=== PATIENT | female | born 1955 | race Hispanic/Latino ===

== ENCOUNTER → 2023-12-17 | Outpatient (CLI) | payer MEDICARE ==
[~2023-12-17] VITALS: Ht 165.1 cm; Wt 68.2 kg
[~2023-12-17] MED LIST: ATOR10 PO; CALCIUM/MG/ZINC PO; CHOL200052 PO; RIVA20TA PO; TELM1TAB42 PO; VERA180T60 PO; VITA1CAP PO
[2023-12-17 14:47] LABS: BASOPHILS # (AUTO) 0.04 K/uL (0.00-0.20); BASOPHILS % (AUTO) 0.6 % (0.0-5.0); EOSINOPHILS # (AUTO) 0.19 K/uL (0.00-0.70); EOSINOPHILS % (AUTO) 2.8 % (0.0-8.0); HEMATOCRIT 39.5 % (36-48); IMMATURE GRANULOCYTE ABSOLUTE 0.01 K/uL (0-1); LYMPHOCYTES % (AUTO) 29.9 % (21.0-51.0); MEAN CORPUSCULAR HEMOGLOBIN 31.7 pg (27.0-33.0); MEAN CORPUSCULAR HGB CONC 33.7 g/dL (32.0-36.0); MONOCYTES # (AUTO) 0.5 K/uL (0.1-1.0); MONOCYTES % (AUTO) 7.9 % (3.0-13.0); NEUTROPHILS # (AUTO) 3.9 K/uL (1.8-7.7); NEUTROPHILS % (AUTO) 58.7 % (40.0-77.0); PLATELET COUNT (AUTO) 185 K/uL (130-400); RED CELL DISTRIBUTION WIDTH 13.2 % (11.0-15.5); WHITE BLOOD COUNT (AUTO) 6.7 K/uL (4.8-10.8)
[2023-12-17 14:51] VITALS: BP 156/70; PULSE 76; RESP 17
[2023-12-17 15:03] LABS: CREATININE 0.6 mg/dL (0.5-1.5); POTASSIUM 3.6 mmol/L (3.5-5.1)
[2023-12-17 15:05] LABS: INR 1.02 (0.85-1.15); PROTHROMBIN TIME 11.8 SEC (9.6-11.6)
[2023-12-17 15:06] LABS: PARTIAL THROMBOPLASTIN TIME 33.7 SEC (26.3-35.5)
== END | disposition home or self-care (01) ==
LOC: DAH 10:00 → EDSTATUS 13:00
PROVIDERS: ATTEND Internal Medicine Cardiovascular Disease
DX: I49.3 Ventricular premature depolarization (principal); I48.0 Paroxysmal atrial fibrillation
CPT/HCPCS: 36415; 80048; 85025; 85610; 85730; 93005

== ENCOUNTER 2024-01-12 06:10 | Day surgery (SDC) | payer MEDICARE ==
[2024-01-10 09:58] VITALS: BP 147/63; PULSE 65; RESP 17
[2024-01-10 10:04] LABS: BASOPHILS # (AUTO) 0.04 K/uL (0.00-0.20); BASOPHILS % (AUTO) 0.6 % (0.0-5.0); EOSINOPHILS # (AUTO) 0.19 K/uL (0.00-0.70); EOSINOPHILS % (AUTO) 2.9 % (0.0-8.0); IMMATURE GRANULOCYTE ABSOLUTE 0.02 K/uL (0-1); LYMPHOCYTES # (AUTO) 1.4 K/uL (1.0-4.8); MEAN CORPUSCULAR HEMOGLOBIN 31.6 pg (27.0-33.0); MEAN CORPUSCULAR HGB CONC 33.3 g/dL (32.0-36.0); MEAN CORPUSCULAR VOLUME 94.7 fL (79-99); MONOCYTES # (AUTO) 0.5 K/uL (0.1-1.0); MONOCYTES % (AUTO) 7.1 % (3.0-13.0); NEUTROPHILS # (AUTO) 4.4 K/uL (1.8-7.7); NEUTROPHILS % (AUTO) 67.1 % (40.0-77.0); PLATELET COUNT (AUTO) 166 K/uL (130-400); RED CELL DISTRIBUTION WIDTH 13.5 % (11.0-15.5); WHITE BLOOD COUNT (AUTO) 6.5 K/uL (4.8-10.8)
[2024-01-10 10:12] LABS: CREATININE 0.7 mg/dL (0.5-1.5); POTASSIUM 3.9 mmol/L (3.5-5.1)
[2024-01-10 10:13] LABS: INR 0.94 (0.85-1.15)
[2024-01-10 10:15] LABS: PARTIAL THROMBOPLASTIN TIME 30.5 SEC (26.3-35.5)
[~2024-01-12] VITALS: Ht 162.6 cm; Wt 68.3 kg
[2024-01-12] VITALS (10 sets, daily range): BP systolic 103–146; BP diastolic 44–63; PULSE 65–70; RESP 1–18
[2024-01-12] MEDS: 0.9%NACL 1000ML 1,000 ML IV ONE (06:50)
[2024-01-12] MEDS ORDERED: LIDOCAINE HCL 1% MDV 50ML VIAL ONE (07:13)
[2024-01-12] MEDS ORDERED: BUPIVACAINE/PF 0.25% 30ML VIAL IJ ONE (07:14)
[2024-01-12] MEDS ORDERED: CEFAZOLIN SODIUM 1 GM VIAL ONE (07:14)
[2024-01-12] MEDS ORDERED: IOHEXOL-350 50ML VIAL IV ONE (07:24)
[2024-01-12] MEDS ORDERED: MIDAZOLAM HCL 1 MG/ML 2ML VIAL ONE ×3 (07:43→08:50)
[2024-01-12] MEDS ORDERED: FENTANYL CITRATE PF 50 MCG/1 ML 2ML VIAL ONE ×2 (07:43→08:59)
[2024-01-12] MEDS ORDERED: ACETAMINOPHEN WITH CODEINE 1 TAB TAB PO PRN (10:00)
[2024-01-12] MEDS: ACETAMINOPHEN 500 MG TABLET PO PRN (10:43)
[2024-01-12] MEDS ORDERED: ADENOSINE 6MG VIAL IV ONE (12:30)
[2024-01-12] MEDS ORDERED: PROP225C8 PO (13:29)
[2024-01-12] MEDS ORDERED: TRAM50TA4 PO (13:29)
== END 2024-01-12 14:00 | disposition home or self-care (01) ==
LOC: DAH 06:10
PROVIDERS: ATTEND Internal Medicine Cardiovascular Disease
DX: Z45.09 Encounter for adjustment and management of other cardiac device (principal); I49.5 Sick sinus syndrome; I48.0 Paroxysmal atrial fibrillation; I47.19 Other supraventricular tachycardia; Z79.899 Other long term (current) drug therapy; Z79.01 Long term (current) use of anticoagulants; Z90.710 Acquired absence of both cervix and uterus; Z98.890 Other specified postprocedural states; Z82.49 Family history of ischemic heart disease and other diseases of the circulatory system; Z80.0 Family history of malignant neoplasm of digestive organs; Z80.1 Family history of malignant neoplasm of trachea, bronchus and lung
CPT/HCPCS: 80048; 85025; 85610; 85730; 36415; 93005; 33208; 33286; 82948 ×2; 71045; A4649; C1785; C1898 ×2; J0153; J3010 ×2; J0690; J7030; J0665; J2250 ×3; J3490; A4215; A4222; A4221; A4663; A4216; A4606; A4223 ×3; 99156; 99157; Q9967

== ENCOUNTER → 2025-06-14 | Outpatient (CLI) | payer MEDICARE ==
--- NOTE | 2025-06-01 10:20 | NUR ---
SPOKE WITH ANDREW maki, will notify dr. sofia for next stop possible pre med instructions
[~2025-06-14] MED LIST changes: +IOHEXOL 350 MG/ML 100ML INFUS..BTL IV ONE; +PROP225C24 PO; -TELM1TAB42 PO; +TELM1TAB84 PO; +TRAM50TA4 PO; -VERA180T60 PO
== END | disposition home or self-care (01) ==
LOC: RAH 06-01 08:33
PROVIDERS: ATTEND Internal Medicine Cardiovascular Disease
DX: Z53.9 Procedure and treatment not carried out, unspecified reason (principal)
CPT/HCPCS: J1200; J2919; Q9967; 75574

== ENCOUNTER 2025-07-30 06:07 | Day surgery (SDC) | payer MEDICARE ==
[2025-07-26 11:41] LABS: IMMATURE GRANULOCYTE ABSOLUTE 0.01 K/uL (0-1); NUCLEATED RED BLOOD CELLS 0.0 % (0.0-0.19); PLATELET COUNT (AUTO) 162 K/uL (130-400); RED BLOOD CELL COUNT(AUTO) 3.67 MIL/uL (4.00-5.50); RED CELL DISTRIBUTION WIDTH 13.9 % (11.0-15.5); WHITE BLOOD COUNT (AUTO) 5.7 K/uL (4.8-10.8)
[2025-07-26 11:42] VITALS: BP 149/58; PULSE 70; RESP 18; TEMP 97.7
[2025-07-26 11:44] LABS: APPEARANCE,URINE CLEAR (CLEAR); GLUCOSE, URINE (UA) NEGATIVE (NEGATIVE); LEUKOCYTE ESTERASE ,URINE NEGATIVE Leu/uL (NEGATIVE); NITRATE,URINE NEGATIVE (NEGATIVE); OCCULT BLOOD,URINE NEGATIVE (NEGATIVE)
[2025-07-26 11:48] LABS: CREATININE 0.9 mg/dL (0.5-1.0); GLOMERULAR FILTR. RATE CALC 68.0 mL/min (>90); GLUCOSE,RANDOM 103.0 mg/dL (70-105); SODIUM SERUM 142.0 mmol/L (136-145); UREA NITROGEN, BLOOD 24.0 mg/dL (7-18)
[2025-07-26 11:51] LABS: INR 1.16 (0.85-1.15)
[2025-07-26 12:04] LABS: ADD UA MICROSCOPIC NO
--- NOTE | 2025-07-26 12:06 | EKG ---
[facility] Test Date: 2025-07-26 Test Time: 11:26:44 Pat Name: STIVEN VALENCIA Department: [facility] Room: Gender: F [employer]: [id number] : 1955 Requested By: JEFFREY LOPEZ Order Number: [id number] Reading MD: Maroc Carter Measurements Intervals [place] Rate: 70 P: 72 NE: 269 QRS: 151 QRSD: 145 T: -40 QT: 411 QTc: 443 Interpretive Statements Sinus rhythm Prolonged NE interval Probable left atrial enlargement Nonspecific intraventricular conduction delay Compared to ECG 01/10/2024 09:46:52 Intraventricular conduction delay now present Electronically Signed On 07-26-2025 15:35:44 CDT by Marco Carter Please click the below link to view image of tracing.
--- NOTE | 2025-07-26 13:52 | HMCIMG ---
CHEST 1VW REASON: PRE OP COMPARISON: Prior chest radiograph from 01/12/2024 is available. FINDINGS: Single view of the chest was obtained. Lungs are clear. There is hyperaeration of lungs with flattening of both hemidiaphragms suggesting of chronic obstructive pulmonary disease.. Heart size is normal. There is a left-sided pacemaker with lead in right atrium and right ventricle. There is no pulmonary vascular congestion. Mediastinum and bony thorax appear unremarkable. IMPRESSION: 1. Chronic obstructive pulmonary disease 2. No evidence of airspace consolidation or pulmonary venous congestion.
--- NOTE | 2025-07-27 09:47 | NUR ---
RE: IODINE ALLERGY INFORMED LANI MCDONALD NP THAT PATIENT STATES SHE IS ALLERGIC TO IODINE. RECEIVED ORDERS FOR PRE MEDS TO BE GIVEN (BENADRYL/SOLUMEDROL)
[2025-07-30] VITALS (9 sets, daily range): BP systolic 122–142; BP diastolic 58–65; PULSE 70; RESP 10–17; TEMP 96.9–97.8
[~2025-07-30] VITALS: Ht 162.6 cm; Wt 67.9 kg
[~2025-07-30 06:07] MED LIST changes: -CALCIUM/MG/ZINC PO; -CHOL200052 PO; -IOHEXOL 350 MG/ML 100ML INFUS..BTL IV ONE; +METO-391 PO; -PROP225C24 PO; +PROP325C17 PO; -TRAM50TA4 PO; -VITA1CAP PO
[2025-07-30] MEDS: 0.9%NACL 1000ML 1,000 ML IV SCH (06:15)
[2025-07-30] MEDS ORDERED: LIDOCAINE HCL 400MG/20ML VIAL ONE (07:13)
[2025-07-30] MEDS ORDERED: IOHEXOL 350 MG/ML 100ML INFUS..BTL IV ONE (07:13)
[2025-07-30] MEDS ORDERED: HEParin-NS 1,000 UNIT/500 ML 1,000 ML IV ONE (07:14)
[2025-07-30] MEDS ORDERED: NITROGLYCERIN 50MG VIAL ONE (07:14)
[2025-07-30] MEDS ORDERED: FAMOTIDINE 20MG VIAL IV ONE (08:02)
[2025-07-30] MEDS ORDERED: MIDAZOLAM HCL 1 MG/ML 2ML VIAL ONE (08:05)
[2025-07-30] MEDS ORDERED: DEXTROSE 50%-WATER 50 ML DISP.SYRIN IV PRN (09:30)
[2025-07-30] MEDS ORDERED: GLUCAGON 1MG KIT 1 MG ML IM PRN (09:30)
[2025-07-30] MEDS ORDERED: 0.9%NACL 1000ML 1,000 ML IV SCH (09:30)
--- NOTE | 2025-07-30 09:48 | PRN ---
PROCEDURE NOTE Indications: Abnormal Lexiscan stress test done on 06/29/2025 (small size, mild intensity, fully reversible perfusion defect seen in the mid anterior septal wall) Nonobstructive CAD ([facility]/coronary angiogram done on 07/22/2023) Paroxysmal SVT Paroxysmal atrial fibrillation, on anticoagulation Frequent PVCs Sinus pauses status post DC ppm placement done on 01/12/2024 Wide complex tachycardia HTN HLP Renal artery stenosis Procedures: Coronary angiogram, femoral angiogram, renal artery angiogram, IFR of the LAD Introduction: After informed written consent was obtained, the patient was brought to the Catheterization Lab in the usual fasting state. Following sterile prep and drape, a time out was performed, then moderate sedation was administered, 1mg of Versed and 50mcg of Fentanyl, then 1% Lidocaine was infiltrated into the right femoral groin. Using a Modified Seldinger technique, a 6Fr Sheath was inserted into the right common femoral artery. While under fluoroscopic guidance, diagnostic coronary catheters were advanced over a wire into the central circulation where they were aspirated, flushed and placed to pressure monitoring, once the wire was removed. Coronary Angio: The left and right coronary arteries were engaged with appropriate catheters and angiography was performed under continuous pressure monitoring. Cardiac Findings: Co-dominant system LM: Large caliber vessel with mild luminal irregularities. The vessel bifurcates into the LAD and LCX. LAD: Large caliber vessel with 40% stenosis in the mid LAD. 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 CEDRIC three blood flow distally Diagonal 1: Small caliber vessel with mild luminal irregularities. Diagonal 2: Small caliber vessel with mild luminal irregularities. LCx: Large caliber vessel with 20% stenosis in the ostial LCX. High OM1: Small caliber vessel (1.0mm) with mild luminal irregularities. High OM2: Small caliber vessel (1.0mm) with mild luminal irregularities. OM3: Medium caliber vessel with mild luminal irregularities LPLV: Medium caliber vessel with mild luminal irregularities RCA: Medium caliber vessel with 20-30% stenosis in the proximal RCA in 20% stenosis of the mid RCA. RPDA: Small caliber vessel with mild luminal irregularities Medications given: Versed 1mg, Fentanyl 50mcg, heparin 75 units/kg x1 dose, nitroglycerin 200 mcg x 1 dose Coronary Intervention: Guide catheter: JL 4 Guidewire: IFR After reviewing the above-mentioned findings the decision was made to further evaluate the stenosis in the mid LAD. The patient was administered heparin 75 units/kg x1 dose. We then advanced a JL four guide catheter and IFR wire into the ostium of the left main. We then advanced the IFR wire and normalized the pressures. We then advanced the IFR wire across the areas stenosis and into the distal LAD. We then performed multiple pressure readings (0.93, 0.93). The degree of stenosis in the mid LAD and myocardial bridge were deemed to be hemodynamically insignificant. The IFR wire was then pulled back and the JR4 guide catheter was removed without issue. Renal artery arteriogram: Diagnostic guide: JR4 The JL 4 guide catheter and J-tip 0.035 wire were advanced into the mid abdominal thoracic cavity. We then removed the J-tip wire and performed a renal artery arteriogram. The findings are listed below. Right renal artery: 20% stenosis in the distal segment of the artery. Left renal artery: 60% tubular stenosis in the mid segment of the artery After reviewing the above-mentioned findings the JR4 guide catheter was removed without issue. Complications: None Conscious Sedation Monitoring: Under my direct order and supervision, medication for moderate conscious sedation was administered by the nursing staff and the patients level of consciousness and physiological status was monitored by an independent trained nurse. Closure of Access Site: After the case completed the sheath was pulled and a 6Fr Angioseal was deployed in the right common femoral artery without complication. Conclusion: 1. Non-obstructive CAD, 40% stenosis in the mid LAD (with a myocardial bridge), hemodynamically insignificant by IFR (0.93, 0.93) 2. Non-obstructive CAD in the LCX, and RCA 3. False-positive Lexiscan stress test (likely artifact induced) 4. 60% stenosis in the left renal artery 5. Paroxysmal SVT 6. Paroxysmal atrial fibrillation, on anticoagulation 7. Frequent PVCs 8. Sinus pauses status post DC ppm placement done on 01/12/2024 9. Wide complex tachycardia 10. HTN 11. HLP Recommendation: 1. Continue goal-directed medical therapy 2. 4 hours of bedrest 3. Groin precautions 4. Start NS at 100 mL/hour x3 hours. 5. Okay to DC once bedrest is complete and the right groin is soft, and free of bruising, bleeding, and or hematoma formation. 6. Restart anticoagulation tonight. 7. No driving for the next 48 hours. 8. No heavy lifting or strenuous exercise for the next 2 weeks. 9. Please have the patient follow up with Dr. Butler in 1-2 weeks. JEFFREY BUTLER MD Jul 30, 2025 09:48
--- NOTE | 2025-07-30 13:26 | NUR ---
Full and complete discharge instructions given to Patient and Family both verbally and in writing. Explained Angiogram procedure precautions and follow up. Right groin site clean dry and intact. No evidence of bleeding, bruising or hematoma. Pedal pulses intact to BLE's. All questions answered. PIV removed with catheter tip intact. Son at bedside appearing supportive. W/C to POV with Son to home.
== END 2025-07-30 13:20 | disposition home or self-care (01) ==
LOC: DAH 06:07
PROVIDERS: ATTEND Internal Medicine Cardiovascular Disease
DX: R94.39 Abnormal result of other cardiovascular function study (principal); I25.10 Atherosclerotic heart disease of native coronary artery without angina pectoris; I10 Essential (primary) hypertension; E78.5 Hyperlipidemia, unspecified; I48.0 Paroxysmal atrial fibrillation; I70.1 Atherosclerosis of renal artery; I49.5 Sick sinus syndrome; Z82.49 Family history of ischemic heart disease and other diseases of the circulatory system; Z98.890 Other specified postprocedural states
CPT/HCPCS: 80048; 83880; 85025; 85610; 85730; 81003; 36415; 71045; 93005; 93454; 36252; 93571; 99156; 99157 ×3; 85347; 82948 ×2; C1887; C1894 ×2; C1760; C1769; J1308; J3010; J3490 ×3; J2919; J1644 ×2; J2250; Q9967; A4215; A4335; A4222; A4221; A4663; A4216; A4606; Q9965; A4223 ×3; A4554; 96360; 96361; J0169